=== PATIENT | male | born 1975 | race Two or more races ===

== ENCOUNTER 2024-07-12 21:27 | Emergency (ER) | payer SELFPAY ==
[2024-07-12 21:31] VITALS: BP 128/82; PULSE 103; RESP 18; TEMP 36.8; O2SAT 96
[2024-07-12 21:35] VITALS: BMI 28.2
--- NOTE | 2024-07-12 21:35 | EDNOTE_ITS ---
ED Medical Clearance RME/HPI General Chief complaint: Medical Clearance Stated complaint: MEDICAL CLEARANCE Time Seen by Provider: 07/12/24 21:37 Arrival date/time: 07/12/24 21:27 RME / HPI RME / HPI Narrative: This section includes all my notes and documentations, including HPI, PE, and ED course. Charles Garcia MD HPI: 49yo male BIB [facility] presents to the ED for a medical clearance. Per [facility], patient was tackled after he evaded being arrested, so he was brought in to be medically cleared for incarceration. Patient does not have any medical complaints. Patient denies any headache, neck pain, chest pain, abdominal pain, back pain, extremity pain or any other associated symptoms. No other complaints reported. ROS: All negative except as documented in HPI. Physical Exam: General: Alert and oriented. No acute distress. Eyes: Conjunctivae and lids clear. ENT: No signs of head trauma. Neck: Supple. No tenderness. Heart: RRR. Lungs: No respiratory distress. Good air movement. No rhonchi, wheezing, rales. Chest: No tenderness. Abdomen: Soft and nontender. Normal bowel sounds. No distension. No rebound or guarding. Back: No tenderness. Legs: No clubbing, cyanosis, edema. Skin: Warm and dry. Neuro: Alert and oriented X 3. Cranial Nerves II-XII grossly intact. No peripheral motor deficits. Musculoskeletal: All major joints and bones are not tender with no limited ROM. At this point, diagnoses include medical clearance for incarceration. Based on my best medical judgment, made decision to medically clear the patient for retirement and no further evaluation or treatment indicated at this time. Patient understands and agrees to the discharge instructions customized and printed, see below. Discharge Instructions from Dr. Garcia printed for you: 1. You reported no pain or other symptoms. The physical exam was normal. There are no signs of serious injury. You are medically cleared for retirement. 2. Seek immediate medical care with any concerns. Charles Garcia MD Review of Systems Review of Systems Systems Reviewed: All systems reviewed, normal except as documented Past Medical History Social History SMOKING STATUS: Never smoker ED Exam Narrative Physical exam: As noted in HPI. Course Quality Measures none Vital Signs Vital signs: Vital Signs Temperature 98.2 F 07/12/24 21:31 Pulse Rate 103 H 07/12/24 21:31 Respiratory Rate 18 07/12/24 21:31 Blood Pressure 128/82 07/12/24 21:31 Pulse Oximetry (%) 96 07/12/24 21:31 Oxygen Delivery Method Room Air 07/12/24 21:31 Medical Clearance MDM Narrative MDM Narrative:: Scribe Attestation: 07/12/24 Alexia Barber am scribing for and in the presence of Dr. Garcia. Patient data External records reviewed:: [facility] previous records (Per chart review, patient has no previous ED visits or admissions to this facility.) Clinical information provided by:: patient and law enforcement Social determinants that could affect healthcare access:: none Patient has the following chronic illnesses:: none How is presenting disease/condition affected by chronic disease/condition?: no chronic disease Evaluation data The following diagnostics were reviewed and interpreted by me:: other (specify) (none) Lab and/or radiology exams considered but not ordered:: none Interpretation Summary: none Medications / Prescriptions Medications or Prescriptions considered but not ordered:: none Medication administrations:: none Consultations Consultation(s) initiated? (list below): No Diagnosis Medical Clearance Differential Diagnosis: other (Injury) Most likely diagnosis given after review of the tests above:: Medical clearance for incarceration Admission Indicated Admission indicated?: not indicated Explain why admission is indicated or not indicated:: With no serious injury, there was no indication for admission. Admission Request Was there a request for admission?: No Disposition Plan Disposition Plan: Discharge Discharge Attestation Discharge Attestation: The patient and all family members were given an opportunity to ask questions and understood the discharge instructions. Discharge instructions specifically effects, indications for sooner follow up or return to the emergency department, and the expected course of current diagnosis. Patient condition: Stable Discharge Plan Plan Patient Disposition: HOME (Self Care) Problem List Clinical Impression: Medical clearance for incarceration Patient/Caregiver Discharge Instructions Discharge Activity: activity as tolerated Education Materials: ED Mechanical Fall Additional Instructions: Discharge Instructions from Dr. Garcia printed for you: 1. You reported no pain or other symptoms. The physical exam was normal. There are no signs of serious injury. You are medically cleared for retirement. 2. Seek immediate medical care with any concerns. Print Language: Latvian Stand Alone Forms: Brittny Award Info., Patient Portal Info Letter
== END 2024-07-12 21:45 ==
LOC: SERX 21:56
PROVIDERS: Emergency Provider Emergency Medicine
DX: Z02.89 Encounter for other administrative examinations (principal)
CPT/HCPCS: 99281